=== PATIENT | male | born 1940 | race Caucasian/White ===

== ENCOUNTER → 2023-10-16 | Outpatient (CLI) | payer MEDICARE ==
--- NOTE | 2023-10-16 18:55 | CA ---
Transthoracic Echo Report Name: Chandra Stuart Age: 83 Gender: M : 1940 Exam Date: 10/16/2023 08:33 Exam Location: [facility] Ht (in): 67.5 Wt (lb): 160 Ordering Physician: Gee Gonzalez DO Attending/Referring Phys: Gee Gonzalez DO [employer] Supervisor Teodora Turner RDCS Procedure CPT: Indications: R01.1 Murmur Cardiac Hx: Technical Quality: Good Contrast 1: Total Dose (mL): Contrast 2: Total Dose (mL): MEASUREMENTS (Male / Female) Normal Values 2D ECHO LV Diastolic Diameter PLAX 4.2 cm 4.2 - 5.9 / 3.9 - 5.3 cm LV Systolic Diameter PLAX 3.3 cm IVS Diastolic Thickness 0.9 cm 0.6 - 1.0 / 0.6 - 0.9 cm LVPW Diastolic Thickness 1.0 cm 0.6 - 1.0 / 0.6 - 0.9 cm LV Relative Wall Thickness 0.4 RV Internal Dim ED PLAX 3.6 cm LVOT Diameter 2.2 cm LA Systolic Diameter LX 3.6 cm 3.0 - 4.0 / 2.7 - 3.8 cm LV Diastolic Volume MOD 4C 107.9 cm??? LV Systolic Volume MOD 4C 39.9 cm??? LV Ejection Fraction MOD 4C 63.0 % LV Cardiac Index MOD 4C 2219.0 cm???/min???m??? LV Diastolic Length 4C 9.0 cm LV Systolic Length 4C 6.7 cm LV Diastolic Volume MOD 2C 100.4 cm??? LV Systolic Volume MOD 2C 28.9 cm??? LV Ejection Fraction MOD 2C 71.2 % LV Cardiac Index MOD 2C 2335.2 cm???/min???m??? LV Diastolic Length 2C 9.8 cm LV Systolic Length 2C 7.9 cm LA Volume 48.1 cm??? 18 - 58 / 22 - 52 cm??? LA Volume Index 25.7 cm???/m??? 16 - 28 cm???/m??? M-MODE Aortic Root Diameter MM 3.2 cm MV E Point Septal Separation 0.2 cm AV Cusp Separation MM 1.4 cm DOPPLER AV Peak Velocity 153.7 cm/s AV Peak Gradient 9.4 mmHg MV Area PHT 3.0 cm??? Mitral E Point Velocity 114.4 cm/s Mitral A Point Velocity 87.4 cm/s Mitral E to A Ratio 1.3 MV Deceleration Time 249.4 ms MV E' Velocity 9.2 cm/s Mitral E to MV E' Ratio 12.4 TR Peak Velocity 279.9 cm/s TR Peak Gradient 31.3 mmHg Right Ventricular Systolic Press 36.3 mmHg FINDINGS Left Ventricle Left ventricular ejection fraction is estimated at 60-65 %. Left ventricular cavity size normal. Left ventricular wall thickness normal. Right Ventricle Mild right ventricular dilatation. Mild pulmonary hypertension. Right Atrium Normal right atrial size. Left Atrium Normal left atrial size. Mitral Valve Mitral valve thickened. Trace mitral regurgitation. Aortic Valve Trileaflet aortic valve. Thickened aortic valve without stenosis. Tricuspid Valve Structurally normal tricuspid valve. Mild tricuspid regurgitation. Pulmonic Valve Structurally normal pulmonic valve. No pulmonic regurgitation. Pericardium No pericardial effusion. Aorta Normal size aortic root and proximal ascending aorta. CONCLUSIONS Normal LV systolic function Prominent right ventricle Previewed by: Dr. Compa Guy MD (Electronically Signed) Final Date: 16 October 2023 18:54
== END | disposition home or self-care (01) ==
LOC: RADECHMAIN 08:14
PROVIDERS: ATTEND Internal Medicine
DX: R01.1 Cardiac murmur, unspecified (principal)
CPT/HCPCS: 93306